=== PATIENT | male | born 1965 | race Caucasian/White ===

== ENCOUNTER 2021-09-19 10:18 | Inpatient (IN) | payer MEDICARE, MEDICAID, SELFPAY ==
[2021-09-19] VITALS (16 sets, daily range): BP systolic 99–146; BP diastolic 61–104; PULSE 88–158; RESP 18–19; TEMP 36.6; O2SAT 92–98; BMI 17.4
--- NOTE | 2021-09-19 10:26 | XR_ITS ---
WS: [id number] Exam: XR chest 1V portable [id number] Date/Time of Exam: 09/19/2021 10:31 AM Reason For Exam: cp Comparison 10/31/2018. The lungs are hyperinflated and clear. Normal cardiomediastinal silhouette. No pleural effusions. Bon y structures are intact. XR/XR chest 1V portable [id number] IMPRESSION: 1. Pulmonary hyperinflation. No acute cardiopulmonary finding.
--- NOTE | 2021-09-19 10:26 | ECG_ITS ---
[facility] Test Date: 2021-09-19 Pat Name: Rodrigue Mayorga Department: Room: Gender: Male Vocational Training Instructor: : 1965 Requested By: Darnell Carlisle Order Number: [id number] Molina MD: Rocky Dennis M.D. Measurements Intervals [place] Rate: 106 P: [place]: QRS: 74 QRSD: 91 T: 75 QT: 323 QTc: 431 Interpretive Statements ATRIAL FIBRILLATION WITH RAPID VENTRICULAR RESPONSE WITH ABERRANT CONDUCTION OR VENTRICULAR PREMATURE COMPLEXES VOLTAGE CRITERIA FOR LVH [MEETS CRITERIA IN ONE OF: R(aVL), S(V1), R(V5), R(V5/V6)+S(V1)] Compared to ECG 11/01/2018 06:14:35 Left ventricular hypertrophy now present Electronically Signed On 09-19-2021 22:28:23 CDT by Rocky Dennis M.D. [id number]
--- NOTE | 2021-09-19 10:57 | ED_ITS ---
HPI - Arrhythmia/Palpitations General: Chief Complaint: Arrhythmia/Palpitations Stated Complaint: PALPITATIONS Time Seen by Provider: 09/19/21 10:26 Source: patient Mode of arrival: EMS History of Present Illness: 48-year-old male presents emergency room with A. fib with RVR. He went to [facility] and was noted to be in A. fib with RVR. He has a history of liver cirrhosis as well as the A. fib. He currently is taking metoprolol 25 mg daily for the A. fib. MD complaint: rapid heart beat, heart racing and atrial fibrillation Onset (ago): hour(s) Duration: constant Context: occurred during rest Arrhythmia history: atrial fibrillation Associated symptoms: Deny anxiety, cough, diaphoresis, muscle cramps, nausea, paresthesias, pre-syncope, sense of impending doom, short of breath, syncope or vomiting Review of Systems Const: Denies: fever(s), chills, fatigue, malaise or diaphoresis ENMT: Denies: throat pain, ear or mastoid pain, nasal discharge or nasal congestion Card: Reports: palpitations and irregular heart rhythm; Denies: chest pain, syncope or pre-syncope Resp: Denies: dyspnea, productive cough or non-productive cough GI: Denies: nausea or vomiting : Denies: flank pain, dysuria, urinary frequency or urinary urgency Musc: Denies: muscle cramps Skin/Breast: Denies: rash or pruritus Psych: Denies: anxiety [facility] ED PFSH: Medical History Ascending aortic aneurysm Atrial fibrillation Cardiomyopathy Congestive heart failure Surgical History S/P thoracentesis Family History Mother Diabetes Grandmother Heart disease Social History Smoking and tobacco status: current every day smoker cigarettes Packs smoked per day: 0.5 Years cigarettes smoked: 50 Alcohol intake: former Lives independently: Yes Housing: Other Details: [facility] [address] [facility] [address] Marital status: Legally Number of children: 0 service: No Current occupational status: disabled Pets and animals: Yes Pets & animals: cat(s) and dog(s) Physical Exam Const: ORIENTATION/CONSCIOUSNESS: Yes awake, Yes oriented to person, Yes oriented to place and Yes oriented to time HENMT: COMMON NORMALS: normocephalic, atraumatic and hearing grossly normal bilaterally HEAD & SCALP: normocephalic and atraumatic Resp: COMMON NORMALS: normal respiratory effort, No retractions, No use of accessory muscles and clear to auscultation bilaterally AUSCULTATION: clear to auscultation bilaterally Cardio: RATE: tachycardic RHYTHM: abnormal rhythm irregularly irregular GI: COMMON NORMALS: Soft to palpation and No hepatosplenomegaly present AUS CULTATION: Yes normoactive bowel sounds PALPATION: Yes Soft to palpation, No Tenderness to palpation present (GI), No Guarding due to palpation present (GI) and Yes No hepatosplenomegaly present Extremity: COMMON NORMALS: normal to inspection, capillary refill normal, no clubbing, cyanosis or edema, no calf tenderness and no pedal edema Neuro: SENSORIUM/ORIENTATION: Yes oriented to person, Yes oriented to place and Yes oriented to time Skin: COMMON NORMALS: no rashes or lesions noted GENERAL SKIN EXAM: no rashes or lesions noted Course Vital Signs: Vital signs: Vital Signs Temperature 97.9 F 09/19/21 10:27 Pulse Rate 122 H 09/19/21 10:27 Respiratory Rate 19 H 09/19/21 10:27 Blood Pressure 146/101 09/19/21 10:27 Pulse Oximetry 98 09/19/21 10:27 MDM - Arrhythmia/Palpitations Medical Decision Making A. fib with RVR with response to esmolol. Patient is on a drip currently. Initially came in to give him IV push metoprolol and a p.o. dose hoping it would converted since he usually does use a beta-kassidy. This did not result in controlled rates of the esmolol was started patient's rate is improved now still titrating up to be admitted discussed the hospitalist orders written Medical Records I reviewed the patient's medical records. Lab Data I reviewed the patient's lab results. : 09/19/21 11:03 09/19/21 11:03 Radiology Impressions Chest X-Ray 09/19/21 10:26 IMPRESSION: 1. Pulmonary hyperinflation. No acute cardiopulmonary finding. Laboratory Results WBC 10.6 10^3/uL (4.0-10.0) H 09/19/21 11:03 RBC 5.26 10^6/uL (4.1-5.3) 09/19/21 11:03 Hgb 15.7 g/dL (11.7-16.6) 09/19/21 11:03 Hct 44.7 % (42.0-52.0) 09/19/21 11:03 MCV 85.0 fl (80-94) 09/19/21 11:03 MCH 29.8 pg (28.0-34.0) 09/19/21 11:03 MCHC 35.1 g/dL (30.0-36.0) 09/19/21 11:03 RDW 13.2 % (12.1-15.1) 09/19/21 11:03 Plt Count 147 10^3/cmm (130-400) 09/19/21 11:03 MPV 11.1 fL (7.4-10.4) H 09/19/21 11:03 Neut % (Auto) 79.8 % 09/19/21 11:03 Lymph % (Auto) 12.9 % 09/19/21 11:03 [place] % (Auto) 6.2 % 09/19/21 11:03 Eos % (Auto) 0.5 % 09/19/21 11:03 Baso % (Auto) 0.2 % 09/19/21 11:03 Neut # (Auto) 8.50 10^3/uL (1.8-7.7) H 09/19/21 11:03 Lymph # (Auto) 1.4 10^3/uL (0.8-4.8) 09/19/21 11:03 [place] # (Auto) 0.7 10^3/uL (0.2-0.9) 09/19/21 11:03 Eos # (Auto) 0.1 10^3/uL (0.0-0.8) 09/19/21 11:03 Baso # (Auto) 0.0 10^3/uL (0.0-0.1) 09/19/21 11:03 Nucleated RBC % (auto) 0 % 09/19/21 11:03 Nucleated RBCs # 0.0 /100WBC 09/19/21 11:03 Sodium 132 mmol/L (136-145) L 09/19/21 11:03 Potassium 3.2 mmol/L (3.5-5.1) L 09/19/21 11:03 Chloride 96 mmol/L (98-107) L 09/19/21 11:03 Carbon Dioxide 25 mmol/L (22-29) 09/19/21 11:03 Anion Gap 14.2 (5-19) 09/19/21 11:03 BUN 4 mg/dL (6-20) L 09/19/21 11:03 Creatinine 0.6 mg/dL (0.7-1.2) L 09/19/21 11:03 GFR Calculation 138.4 mL/min (90-130) H 09/19/21 11:03 Glucose 121 mg/dL (65-115) H 09/19/21 11:03 Calculated Osmolality 272 mOsm/kg (285-295) L 09/19/21 11:03 Calcium 8.6 mg/dL (8.5-10.5) 09/19/21 11:03 Total Bilirubin 1.0 mg/dL (0.15-1.2) 09/19/21 11:03 AST 17 U/L (0-40) 09/19/21 11:03 ALT 11 U/L (0-41) 09/19/21 11:03 Alkaline Phosphatase 96 IU/L (40-130) 09/19/21 11:03 Troponin T Baseline 11 ng/L (0-15) 09/19/21 11:03 NT-Pro-B Natriuret Pep 1504 pg/mL (0-125) H 09/19/21 11:03 Total Protein 6.9 g/dL (6.6-8.7) 09/19/21 11:03 Albumin 4.0 g/dL (3.5-5.2) 09/19/21 11:03 Globulin 2.9 g/dL (1.3-4.6) 09/19/21 11:03 Ethyl Alcohol < 10 mg/dL (0-10) 09/19/21 11:03 Critical Care Time Critical Care Time: Critical Care Time: Yes Total Critical Care Time: 40 Attestation: The high probability of a clinically significant, sudden or life threatening deterioration of the patient's cardiovascular system(s) required my full and direct attention, intervention and personal management. The critical care time is as shown. This time is in addition to time spent performing any reported procedures but includes the following: [x] Data and vital sign review and interpretation [x] Patient assessment, examination and intervention [x] Documentation [x] Medication orders and management Discharge Plan Discharge Patient Disposition: Admitted As Inpatient Clinical Impression: Atrial fibrillation, Cardiomyopathy Condition: Stable Prescriptions: No Action albuterol sulfate 2.5 mg /3 mL (0.083 %) solution for nebulization 2.5 mg inhalation TID 0RF Combivent Respimat 20-100 mcg/actuation mist 1 puff inhalation Q6H 0RF cranberry extract [Cranberry Concentrate] 500 mg capsule 500 mg PO DAILY 0RF Rx Instructions: administer with meals entecavir 0.5 mg tablet 0.5 mg PO DAILY 0RF ipratropium bromide 0.02 % solution 2.5 ml inhalation Q6H PRN (Reason: Shortness Of Breath) 0RF magnesium oxide 400 mg magnesium tablet 400 mg PO DAILY 0RF metoprolol succinate 25 mg tablet extended release 24 hr 50 mg PO DAILY 0RF pantoprazole 40 mg tablet,delayed release (DR/EC) 40 mg PO BID 0RF budesonide-formoterol [Symbicort] 160-4.5 mcg/actuation HFA aerosol inhaler 2 puff inhalation BID 0RF albuterol sulfate [Ventolin HFA] 90 mcg/actuation HFA aerosol inhaler 2 puff inhalation QID 0RF B complex-vitamin C-folic acid 400 mcg tablet extended release 1 tab PO DAILY 0RF ascorbic acid (vitamin C) 1,000 mg tablet 1 g PO DAILY 0RF furosemide 20 mg tablet 20 mg PO DAILY PRN (Reason: Edema) 0RF potassium chloride 10 mEq capsule, extended release 10 meq PO DAILY 0RF Referrals: Toan Sanchez, AUTOMOTIVE COLLISION ESTIMATOR-C [Primary Care Provider] - Coding Level of Care Code ED Blood Donor Recruiter for Chg Fwd Exam Detailed
[2021-09-19 11:24] LABS: Basophils % 0.2 %; Eosinophils # 0.1 10^3/uL (0.0-0.8); Eosinophils % 0.5 %; Hematocrit 44.7 % (42.0-52.0); Hemoglobin 15.7 g/dL (11.7-16.6); Lymphocytes # 1.4 10^3/uL (0.8-4.8); Lymphocytes % 12.9 %; Mean Corpuscular HGB Conc 35.1 g/dL (30.0-36.0); Mean Corpuscular Hemoglobin 29.8 pg (28.0-34.0); Mean Platelet Volume 11.1 fL (7.4-10.4); Monocytes # 0.7 10^3/uL (0.2-0.9); Monocytes % 6.2 %; Neutrophils % 79.8 %; Nucleated Red Blood Cells % 0 %; Platelet Count 147 10^3/cmm (130-400); Red Blood Count 5.26 10^6/uL (4.1-5.3); Red Cell Distribution Width 13.2 % (12.1-15.1); White Blood Count 10.6 10^3/uL (4.0-10.0)
[2021-09-19 11:58] LABS: Alanine Aminotransferase 11 U/L (0-41); Alcohol Level < 10 mg/dL (0-10); Alkaline Phosphatase 96 IU/L (40-130); Anion Gap 14.2 (5-19); Aspartate Amino Transferase 17 U/L (0-40); Blood Urea Nitrogen 4 mg/dL (6-20); Calcium 8.6 mg/dL (8.5-10.5); Carbon Dioxide 25 mmol/L (22-29); Chloride 96 mmol/L (98-107); Globulin 2.9 g/dL (1.3-4.6); Glomerular Filtration Rate 138.4 mL/min (90-130); Glucose 121 mg/dL (65-115); NT Pro B Type Natriuretic Pept 1504 pg/mL (0-125); Osmolality Calculated 272 mOsm/kg (285-295); Potassium 3.2 mmol/L (3.5-5.1); Sodium 132 mmol/L (136-145); Total Protein 6.9 g/dL (6.6-8.7)
[2021-09-19] MEDS: metoprolol succinate ER (24 HR) 25 mg Tablet PO (12:01)
[2021-09-19 12:07] LABS: Troponin(5th) Baseline 11 ng/L (0-15)
[2021-09-19] MEDS: esmolol drip 2,500 MG/250 ML PREMIX 9.53 MG IV (12:20)
--- NOTE | 2021-09-19 12:26 | ECG_ITS ---
[facility] Test Date: 2021-09-19 Pat Name: Rodrigue Mayorga Department: Room: Gender: Male Senior Financial Reporting Analyst: : 1965 Requested By: Darnell Carlisle Order Number: [id number] Molina MD: Rocky Dennis M.D. Measurements Intervals [place] Rate: 125 P: [place]: QRS: 74 QRSD: 93 T: 78 QT: 308 QTc: 445 Interpretive Statements ATRIAL FIBRILLATION WITH RAPID VENTRICULAR RESPONSE VOLTAGE CRITERIA FOR LVH [MEETS CRITERIA IN ONE OF: R(aVL), S(V1), R(V5), R(V5/V6)+S(V1)] MODERATE ST DEPRESSION [0.05+ mV ST DEPRESSION] Compared to ECG 09/19/2021 10:30:43 ST (T wave) deviation now present Ventricular premature complex(es) no longer present Aberrant conduction of supraventricular beat(s) no longer present Electronically Signed On 09-19-2021 22:36:47 CDT by Rocky Dennis M.D. [id number]
--- NOTE | 2021-09-19 13:35 | PM.HP ---
Providers/Chief Complaint Primary Care Provider: Tona Sanchez UNDERTAKER HELPER-C Chief Complaint: PALPITATIONS History of Present Illness Rodrigue Mayorga is a 56 year old male who carries history of nonischemic cardiomyopathy, history of GI bleed, A. fib, presented today with chief complaint of chest pain. Patient is stating that he has been having right-sided pain for last 4 to 5 years and last few days he has been experiencing palpitations at rest and on exertion. His metoprolol medication has not helped relieve his symptoms. He decided to go to [facility] where Dr. Moseley asked him to go to the ER for further evaluation. In the ER he was diagnosed with A. fib RVR he was started on esmolol drip. Because of low blood pressure I have asked nurse to switch to amiodarone after IV bolus. He is denying chest pain, orthopnea, PND, he experienced vomiting on Saturday which she is attributing to his gallbladder, patient is stating that he was asked not to get his COVID removed because of liver cirrhosis and poor ejection fraction. Review of Systems Const: Denies: fever(s) Eyes: Denies: change in vision ENMT: Denies: throat pain Card: Reports: chest pain Resp: Reports: dyspnea GI: Reports: nausea : Denies: flank pain Musc: Denies: neck pain Skin/Breast: Denies: rash Neuro: Denies: headache(s) Psych: Denies: anxiety Endo: Denies: polyuria Rafa/Lymph: Denies: easy bruising All/Imm: Denies: urticaria Medications/Allergies Home Medications Medication Instructions Recorded Confirmed Last Taken Type B complex-vitamin C-folic acid ER 1 tab PO DAILY tab 09/26/20 09/19/21 Unknown History 400 mcg tablet,extended release albuterol sulfate 2.5 mg INHALATION TID ml 09/26/20 09/19/21 09/19/21 History albuterol sulfate 90 mcg/actuation 2 puff INHALATION QID 09/26/20 09/19/21 09/19/21 History aerosol inhaler (Ventolin HFA) ascorbic acid (vitamin C) 1,000 mg 1 g PO DAILY tab 09/26/20 09/19/21 Unknown History tablet budesonide-formoterol HFA 160 2 puff INHALATION BID 09/26/20 09/19/21 09/19/21 History mcg-4.5 mcg/actuation aerosol inhaler (Symbicort) cranberry extract 500 mg capsule 500 mg PO DAILY cap 09/26/20 09/19/21 09/19/21 History (Cranberry Concentrate) entecavir 0.5 mg tablet 0.5 mg PO DAILY 09/26/20 09/19/21 09/19/21 History ipratropium 20 mcg-albuterol 100 1 puff INHALATION Q6H 09/26/20 09/19/21 09/18/21 History mcg/actuation mist for inhalation (Combivent Respimat) ipratropium bromide 0.02 % 2.5 ml INHALATION Q6H PRN 09/26/20 09/19/21 Unknown History solution for inhalation magnesium oxide 400 mg PO DAILY 09/26/20 09/19/21 09/19/21 History metoprolol succinate 25 mg 50 mg PO DAILY tab 09/26/20 09/19/21 09/19/21 History tablet,extended release 24 hr pantoprazole 40 mg tablet,delayed 40 mg PO BID tab 09/26/20 09/19/21 09/19/21 History release furosemide 20 mg tablet 20 mg PO DAILY PRN 11/08/20 09/19/21 Unknown History potassium chloride 10 mEq 10 meq PO DAILY 11/08/20 09/19/21 09/19/21 History capsule,extended release Allergies Allergy/AdvReac Type Severity Reaction Status Date / Time clindamycin Allergy Intermediate Facial Verified 09/19/21 11:50 swelling codeine AdvReac Unknown Nightmares Verified 09/19/21 11:50 morphine AdvReac Unknown Nightmares Verified 09/19/21 11:50 PFSH Acute PFSH: Medical History (Updated 09/19/21 @ 14:33 by Thomas West MD) Ascending aortic aneurysm Asthma Atrial fibrillation Cardiomyopathy Chronic type B viral hepatitis Cirrhosis of liver Congestive heart failure COPD (chronic obstructive pulmonary disease) GERD (gastroesophageal reflux disease) History of esophageal varices History of gastric ulcer History of pleural effusion Hyperlipidemia Surgical History (Updated 09/19/21 @ 14:33 by Thomas West MD) S/P coronary angiogram S/P skin biopsy S/P thoracentesis Family History Mother Diabetes Grandmother Heart disease Social History Smoking and tobacco status: current every day smoker cigarettes Packs smoked per day: 0.5 Years cigarettes smoked: 50 Alcohol intake: former Lives independently: Yes Housing: Other Details: [facility] Marital status: Legally Number of children: 0 service: No Current occupational status: disabled Pets and animals: Yes Pets & animals: cat(s) and dog(s) Vitals/I&O/Wt Last Vital Signs Temp 97.9 F 09/19/21 10:27 Pulse 122 H 09/19/21 10:27 Resp 19 H 09/19/21 10:27 BP 146/101 09/19/21 10:27 Pulse Ox 98 09/19/21 10:27 09/18/21 09/19/21 09/19/21 22:59 06:59 14:59 Intake Total 7.783 / 7.783 Balance 7.783 / 7.783 Weight last 48 hrs Weight 63.503 kg Physical Exam Narrative: Pleasant cooperative male No active signs of decompensated liver cirrhosis Lean appearing After chest pain Riddle sign positive Abdomen soft no signs of rigidity guarding or peritonitis Awake and alert Saturating well on room air A. fib RVR heart rate in 130s Low blood pressure noted Currently on esmolol drip No active respiratory distress, no audible stridor or wheezing EOMI, PERRLA No signs of edema or signs of heart failure Data : 09/19/21 11:03 09/19/21 11:03 A&P Assessment and plan (1) Atrial fibrillation: Status: Acute (2) Ascending aortic aneurysm: Status: Acute (3) Cardiomyopathy: Status: Acute (4) Hypokalemia: Status: Acute Plan A. fib RVR Not on anticoagulating agent because of history of GI bleed Increase the dose of metoprolol, change esmolol to amiodarone drip because of low blood pressure In the past patient is stating that his heart rate dropped to 60s with digoxin and that is why digoxin was stopped Potassium is 3.2, check magnesium level, No active chest pain Patient does endorse to marijuana Full code Cardiac diet DVT prophylaxis Lovenox for now in case of any GI bleed will discontinue anticoagulating agent Liver cirrhosis Hepatitis Alcohol history Continue antiviral treatment CIWA protocol patient did not endorse to current use of alcohol Attestations Medical Necessity Statement*: Anticipating more than 2 midnights for A. fib RVR currently needing amiodarone drip Time Spent in Patient Care: 35 Coding Level of Care Code Acute Skilled Trades Teacher for Chg Fwd Diagnoses Atrial fibrillation I48.91 Ascending aortic aneurysm I71.2 Cardiomyopathy I42.9 Hypokalemia E87.6
[2021-09-19 14:40] LABS: Magnesium 1.6 mg/dL (1.7-2.3)
[2021-09-19] MEDS: potassium chloride ER 20 mEq Tablet 40 MEQ PO (14:45)
[2021-09-19] MEDS: amiodarone 50 mg/mL SDV 3 mL 150 MG IVP (14:45)
[2021-09-19 15:07] LABS: Thyroid Stimulating Hormone 0.62 uIU/mL (0.27-4.20)
[2021-09-19 15:18] LABS: Troponin 5 2HR Delta -1.1 ABS# (0-10)
--- NOTE | 2021-09-19 16:26 | ECG_ITS ---
[facility] Test Date: 2021-09-19 Pat Name: Rodrigue Mayorga Department: Room: 277 Gender: Male Customer Solutions Representative: : 1965 Requested By: Darnell Carlisle Order Number: [id number] Jesse MD: Rocky Dennis M.D. Measurements Intervals [place] Rate: 83 P: [place]: QRS: 66 QRSD: 90 T: 66 QT: 371 QTc: 437 Interpretive Statements ATRIAL FIBRILLATION ABNORMAL RHYTHM ECG Compared to ECG 09/19/2021 12:25:31 Left ventricular hypertrophy no longer present ST (T wave) deviation no longer present Electronically Signed On 09-19-2021 22:37:50 CDT by Rocky Dennis M.D. [id number]
[2021-09-19] MEDS: nicotine 21 mg Patch 1 PATCH TRANSDERMA (16:45)
[2021-09-19 18:03] LABS: Troponin 5 6HR 10.74 ng/L (0-15)
[2021-09-19 18:34] LABS: Troponin 5 6HR Delta 0.56 ng/L (0-12)
[2021-09-20] VITALS (9 sets, daily range): BP systolic 105–143; BP diastolic 76–100; PULSE 90–114; RESP 14–24; TEMP 36.3–37; O2SAT 94–97
--- NOTE | 2021-09-20 00:29 | PC.NURSE ---
patient requesting home symbicort, contacted Dr Hernandez for order to continue home med, placed non-formulary order to pharmacy, later patient pushed call light angrily demanding his symbicort, yelling go get my bag that they took from me right now or I'm going to get upset , notified charge nurse, pulled bag from pyxis and returned to patient, patient still pressing call button multiple times while I was in the room stating I don't think its working , I explained that his light was on and that was why I had entered the room, patient opened bag angrily throwing around contents to get symbicort
[2021-09-20 03:21] LABS: Basophils % 0.4 %; Eosinophils # 0.2 10^3/uL (0.0-0.8); Eosinophils % 1.9 %; Hematocrit 46.8 % (42.0-52.0); Lymphocytes # 1.9 10^3/uL (0.8-4.8); Lymphocytes % 18.6 %; Mean Corpuscular HGB Conc 34.2 g/dL (30.0-36.0); Mean Corpuscular Volume 87.6 fl (80-94); Mean Platelet Volume 11.2 fL (7.4-10.4); Monocytes # 0.7 10^3/uL (0.2-0.9); Monocytes % 7.3 %; Neutrophils # 7.21 10^3/uL (1.8-7.7); Neutrophils % 71.6 %; Nucleated Red Blood Cells % 0 %; Platelet Count 124 10^3/cmm (130-400); Red Blood Count 5.34 10^6/uL (4.1-5.3); Red Cell Distribution Width 13.3 % (12.1-15.1); White Blood Count 10.1 10^3/uL (4.0-10.0)
[2021-09-20 03:36] LABS: Anion Gap 10.5 (5-19); Blood Urea Nitrogen 7 mg/dL (6-20); Calcium 9.2 mg/dL (8.5-10.5); Carbon Dioxide 29 mmol/L (22-29); Chloride 101 mmol/L (98-107); Glomerular Filtration Rate 138.4 mL/min (90-130); Glucose 113 mg/dL (65-115); Magnesium 1.8 mg/dL (1.7-2.3); Osmolality Calculated 283 mOsm/kg (285-295); Phosphorus 2.7 mg/dL (2.5-4.5); Potassium 3.5 mmol/L (3.5-5.1); Sodium 137 mmol/L (136-145)
--- NOTE | 2021-09-20 07:19 | PC.NURSE ---
notified by DIRECTOR ORACLE DATABASE that patient was screaming that one of his medication was missing, went to patient's room with oncoming nurse and told patient that his medication was in the med pyxis for the nurse to bring, patient screaming no I need it now you need to get it now , retrieved Entecavir from med room and gave to patient
[2021-09-20] MEDS: folic acid 1 mg Tablet PO (08:27)
[2021-09-20] MEDS: nicotine 21 mg Patch 1 PATCH TRANSDERMA (08:27)
[2021-09-20] MEDS: magnesium oxide 400 mg tablet PO (08:27)
[2021-09-20] MEDS: potassium chloride ER 10 mEq Tablet PO (08:28)
[2021-09-20] MEDS: thiamine 100 mg Tablet PO (08:28)
[2021-09-20] MEDS: multivitamin therapeutic Tablet 1 TAB PO (08:28)
[2021-09-20] MEDS: metoprolol succinate ER (24 HR) 25 mg Tablet 50 MG PO (08:28)
--- NOTE | 2021-09-20 08:32 | PC.NURSE ---
I presented to the patient's room for rounding and patient states that we took his medications away from him when he was admitted and he wasn't able to take his Hepatitis medication (Entecavir) in the same timeframe he usually does at home. His medication is now kept at his bedside and he will take it in his timeframe that he is used to and he will call the nurse when he is taking it for documentation. Also while at bedside, it was noted that his IV in his left forearm was possibly infiltrated and there was Amiodarone running. I assessed the site and d/c'd the Amiodarone. I informed Moiz Oropeza RN of the infiltration.
[2021-09-20] MEDS: enoxaparin 40 mg/0.4 mL Syringe SUBCUT (08:48)
--- NOTE | 2021-09-20 12:12 | PM.PN ---
Subjective Subjective: Patient wanted to leave AMA however agreed to stay today, he was s craving nicotine Currently heart rate is not well controlled I will increase the dose of metoprolol along amiodarone He still has few more hours before he finishes amiodarone drip Nurse shipping track supervisor Xiomara also spoke to him this morning, had detailed discussion regarding why staying in the hospital is beneficial for him Vitals/I&O/Wt Last Vital Signs Temp 98.0 F 09/20/21 07:47 Pulse 112 H 09/20/21 11:59 Resp 24 H 09/20/21 11:59 BP 105/88 09/20/21 11:59 Pulse Ox 97 09/20/21 11:59 09/19/21 09/20/21 09/20/21 22:59 06:59 14:59 Intake Total 1263.616 / 1293.180 240 / 240 Output Total 900 / 900 400 / 400 Balance 363.616 / 393.180 -160 / -160 Weight last 48 hrs Weight 63.503 kg Physical Exam Narrative: No active signs of decompensated liver cirrhosis Abdomen is soft Saturating well on room air Awake and alert Nonfocal neuro exam A. fib RVR Breathing well on room air Data : 09/20/21 03:04 09/20/21 03:04 A&P Assessment and plan (1) Hypokalemia: Status: Acute (2) Cardiomyopathy: Status: Acute (3) Ascending aortic aneurysm: Status: Acute (4) Atrial fibrillation: Status: Acute Plan A. fib RVR Heart rate not controlled Increase the dose of metoprolol Will use amiodarone 400 twice daily Patient was asked on digoxin he does not have typical heart failure presentation Any stating that digoxin last time his heart rate dropped to 60s Because of history of GI bleed Not a candidate for anticoagulation No active signs of decompensated liver cirrhosis Patient doing well on room air My plan is to discharge him home tomorrow if we are able to control his heart rate He does have symptomatic palpitations at home He is full code Low-sodium diet Attestations Medical Necessity Statement*: He will need 1 more day for up titration of his medications 30 minutes Coding Level of Care Code Acute Laboratory Tech for Chg Fwd Diagnoses Hypokalemia E87.6 Cardiomyopathy I42.9 Ascending aortic aneurysm I71.2 Atrial fibrillation I48.91
[2021-09-20] MEDS: TRAMadol 50 mg Tablet PO ×2 (12:38→20:00)
[2021-09-20] MEDS: metoprolol tartrate 50 mg Tablet 100 MG PO ×2 (15:34→20:00)
[2021-09-20] MEDS: ALPRAZolam 0.5 mg Tablet PO (15:35)
[2021-09-20 15:46] LABS: Add Urine Microscopic? NO; Charge for UA Resulting for Rev
[2021-09-20 15:51] LABS: Bilirubin Urine Neg (Negative); Blood Urine Neg (Negative); Glucose Urine UA Norm (Normal); Ketones Urine Negative (Negative); Leukocyte Esterase Urine Negative (Negative); Nitrate Urine Negative (Negative); Protein Urine Neg (Negative); Specific Gravity, Urine 1.005 (1.005-1.030); Urine Appearance Clear (CLEAR); Urine Color Yellow (Yellow); Urobilinogen Urine Norm (Negative); pH Urine 7 (5-7)
[2021-09-20] MEDS: amiodarone 200 mg Tablet 400 MG PO (18:22)
[2021-09-20] MEDS: LORazepam 2 mg Tablet PO (20:00)
[2021-09-21] VITALS (9 sets, daily range): BP systolic 101–120; BP diastolic 72–78; PULSE 74–93; RESP 11–19; TEMP 36.1–36.6; O2SAT 94–97
[2021-09-21 04:39] LABS: Anion Gap 12.9 (5-19); Blood Urea Nitrogen 10 mg/dL (6-20); Calcium 8.7 mg/dL (8.5-10.5); Carbon Dioxide 25 mmol/L (22-29); Chloride 103 mmol/L (98-107); Glomerular Filtration Rate 170.8 mL/min (90-130); Glucose 91 mg/dL (65-115); Osmolality Calculated 283 mOsm/kg (285-295); Potassium 3.9 mmol/L (3.5-5.1); Sodium 137 mmol/L (136-145)
[2021-09-21] MEDS: magnesium oxide 400 mg tablet PO (08:40)
[2021-09-21] MEDS: amiodarone 200 mg Tablet 400 MG PO (08:40)
[2021-09-21] MEDS: folic acid 1 mg Tablet PO (08:40)
[2021-09-21] MEDS: potassium chloride ER 10 mEq Tablet PO (08:40)
[2021-09-21] MEDS: multivitamin therapeutic Tablet 1 TAB PO (08:40)
[2021-09-21] MEDS: thiamine 100 mg Tablet PO (08:41)
[2021-09-21] MEDS: metoprolol tartrate 50 mg Tablet 100 MG PO (08:43)
[2021-09-21] MEDS: nicotine 21 mg Patch 1 PATCH TRANSDERMA (08:47)
--- NOTE | 2021-09-21 10:53 | P.DS_ITS ---
Discharge Providers Date of Admission: 09/19/21 15:04 Date of Discharge: September 21, 2021 Attending Provider at Admission: Thomas West MD Attending Provider at Discharge: Thomas West MD Primary Care Provider: Tona Sanchez-Jony Diagnoses at Discharge Discharge Diagnosis (1) Hypokalemia: Status: Acute (2) Cardiomyopathy: Status: Acute (3) Ascending aortic aneurysm: Status: Acute (4) Atrial fibrillation: Status: Acute Reason for Visit Reason for Visit: PALPITATIONS Hospital Course Hospital Course Mr. Mayorga 56-year-old male who carries history of nonischemic cardiomyopathy, atrial fibrillation, not a candidate of anticoagulation secondary to GI bleed in the past, was referred from my known clinic to the ER for palpitations management of A. fib RVR. Patient was initially put on esmolol drip. I had to discontinue the drip and start him on amiodarone after the IV bolus because of low blood pressure. He remained hemodynamically stable on amiodarone drip. I discontinued his metoprolol succinate and start him on metoprolol tartrate 100 mg twice a day. TSH normal. Electrolytes were replenished. Patient wanted to leave next day however agreed to stay 1 more day when I told him why it is important to control his heart rate to avoid palpitations and symptoms at home. On 09/21 heart rate is staying between 80-92, intermittent sinus rhythm to A. fib pattern on telemetry. I will discharge him on amiodarone 200 mg daily along with metoprolol 100 mg twice a day and high-dose aspirin. He is not a candidate of anticoagulating agent. For ascending aortic aneurysm he follows up with Dr. Brody. Physical Exam Narrative: Nonfocal neuro exam Cachectic, malnourished S1, S2 variable no active shortness of breath, apnea or PND Nonfocal neuro exam Cooperative and pleasant Discharge Data Studies Completed and Pending Completed Studies During Hospitalization Category Date Time Status XR chest 1V portable [id number] Stat Exams 09/19/21 10:26 Completed Radiology Impressions Chest X-Ray 09/19/21 10:26 IMPRESSION: 1. Pulmonary hyperinflation. No acute cardiopulmonary finding. Laboratory Results WBC 10.1 10^3/uL (4.0-10.0) H 09/20/21 03:04 RBC 5.34 10^6/uL (4.1-5.3) H 09/20/21 03:04 Hgb 16.0 g/dL (11.7-16.6) 09/20/21 03:04 Hct 46.8 % (42.0-52.0) 09/20/21 03:04 MCV 87.6 fl (80-94) 09/20/21 03:04 MCH 30.0 pg (28.0-34.0) 09/20/21 03:04 MCHC 34.2 g/dL (30.0-36.0) 09/20/21 03:04 RDW 13.3 % (12.1-15.1) 09/20/21 03:04 Plt Count 124 10^3/cmm (130-400) L 09/20/21 03:04 MPV 11.2 fL (7.4-10.4) H 09/20/21 03:04 Neut % (Auto) 71.6 % 09/20/21 03:04 Lymph % (Auto) 18.6 % 09/20/21 03:04 Thomas % (Auto) 7.3 % 09/20/21 03:04 Eos % (Auto) 1.9 % 09/20/21 03:04 Baso % (Auto) 0.4 % 09/20/21 03:04 Neut # (Auto) 7.21 10^3/uL (1.8-7.7) 09/20/21 03:04 Lymph # (Auto) 1.9 10^3/uL (0.8-4.8) 09/20/21 03:04 Thomas # (Auto) 0.7 10^3/uL (0.2-0.9) 09/20/21 03:04 Eos # (Auto) 0.2 10^3/uL (0.0-0.8) 09/20/21 03:04 Baso # (Auto) 0.0 10^3/uL (0.0-0.1) 09/20/21 03:04 Nucleated RBC % (auto) 0 % 09/20/21 03:04 Nucleated RBCs # 0.0 /100WBC 09/20/21 03:04 Sodium 137 mmol/L (136-145) 09/21/21 03:51 Potassium 3.9 mmol/L (3.5-5.1) 09/21/21 03:51 Chloride 103 mmol/L (98-107) 09/21/21 03:51 Carbon Dioxide 25 mmol/L (22-29) 09/21/21 03:51 Anion Gap 12.9 (5-19) 09/21/21 03:51 BUN 10 mg/dL (6-20) 09/21/21 03:51 Creatinine 0.5 mg/dL (0.7-1.2) L 09/21/21 03:51 GFR Calculation 170.8 mL/min (90-130) H 09/21/21 03:51 Glucose 91 mg/dL (65-115) 09/21/21 03:51 Calculated Osmolality 283 mOsm/kg (285-295) L 09/21/21 03:51 Calcium 8.7 mg/dL (8.5-10.5) 09/21/21 03:51 Phosphorus 2.7 mg/dL (2.5-4.5) 09/20/21 03:04 Magnesium 1.8 mg/dL (1.7-2.3) 09/20/21 03:04 Total Bilirubin 1.0 mg/dL (0.15-1.2) 09/19/21 11:03 AST 17 U/L (0-40) 09/19/21 11:03 ALT 11 U/L (0-41) 09/19/21 11:03 Alkaline Phosphatase 96 IU/L (40-130) 09/19/21 11:03 Troponin T Baseline 11 ng/L (0-15) 09/19/21 11:03 Troponin T 120 Minute 10.20 ng/L (0-15) 09/19/21 13:30 Delta Troponin T -1.1 ABS# (0-10) L 09/19/21 13:30 Troponin T Hi Sens 6Hr 10.74 ng/L (0-15) 09/19/21 17:14 Troponin T Hi Sens 6Hr Delta 0.56 ng/L (0-12) 09/19/21 17:14 NT-Pro-B Natriuret Pep 1504 pg/mL (0-125) H 09/19/21 11:03 Total Protein 6.9 g/dL (6.6-8.7) 09/19/21 11:03 Albumin 4.0 g/dL (3.5-5.2) 09/19/21 11:03 Globulin 2.9 g/dL (1.3-4.6) 09/19/21 11:03 TSH 0.62 uIU/mL (0.27-4.20) 09/19/21 13:30 Urine Color Yellow (Yellow) 09/19/21 15:40 Urine Appearance Clear (CLEAR) 09/19/21 15:40 Urine pH 7 (5-7) 09/19/21 15:40 Ur Specific [place] 1.005 (1.005-1.030) 09/19/21 15:40 Urine Protein Neg (Negative) 09/19/21 15:40 Urine Glucose (UA) Norm (Normal) 09/19/21 15:40 Urine Ketones Negative (Negative) 09/19/21 15:40 Urine Blood Neg (Negative) 09/19/21 15:40 Urine Nitrate Negative (Negative) 09/19/21 15:40 Urine Bilirubin Neg (Negative) 09/19/21 15:40 Urine Urobilinogen Norm mg/dL (Negative) 09/19/21 15:40 Ur Leukocyte Esterase Negative (Negative) 09/19/21 15:40 Ethyl Alcohol < 10 mg/dL (0-10) 09/19/21 11:03 Vitals Last Vital Signs Temp 97.6 F 09/21/21 07:49 Pulse 92 09/21/21 10:35 Resp 19 H 09/21/21 07:49 BP 120/78 09/21/21 07:49 Pulse Ox 95 09/21/21 07:49 Discharge Plan Discharge Patient Disposition: Home Condition: Stable Prescriptions: New metoprolol tartrate 50 mg Tablet 100 mg PO BID@0900,2100 Qty: 60 4RF amiodarone 200 mg tablet 200 mg PO DAILY Qty: 90 4RF aspirin 325 mg capsule 325 mg PO DAILY Qty: 30 3RF Continued albuterol sulfate 2.5 mg /3 mL (0.083 %) solution for nebulization 2.5 mg inhalation TID 0RF Combivent Respimat 20-100 mcg/actuation mist 1 puff inhalation Q6H 0RF cranberry extract [Cranberry Concentrate] 500 mg capsule 500 mg PO DAILY 0RF Rx Instructions: administer with meals entecavir 0.5 mg tablet 0.5 mg PO DAILY 0RF ipratropium bromide 0.02 % solution 2.5 ml inhalation Q6H PRN (Reason: Shortness Of Breath) 0RF magnesium oxide 400 mg magnesium tablet 400 mg PO DAILY 0RF pantoprazole 40 mg tablet,delayed release (DR/EC) 40 mg PO BID 0RF budesonide-formoterol [Symbicort] 160-4.5 mcg/actuation HFA aerosol inhaler 2 puff inhalation BID 0RF albuterol sulfate [Ventolin HFA] 90 mcg/actuation HFA aerosol inhaler 2 puff inhalation QID 0RF B complex-vitamin C-folic acid 400 mcg tablet extended release 1 tab PO DAILY 0RF ascorbic acid (vitamin C) 1,000 mg tablet 1 g PO DAILY 0RF furosemide 20 mg tablet 20 mg PO DAILY PRN (Reason: Edema) 0RF potassium chloride 10 mEq capsule, extended release 10 meq PO DAILY 0RF Discontinued metoprolol succinate 25 mg tablet extended release 24 hr 50 mg PO DAILY 0RF Discharge Orders: Discharge Order (Routine); Ordered 09/21/21 Ordered By: Thomas West Referrals: Ten Berry MD [Hospitalist] - 10/09/21 10:00 am ([facility]. ) Tona Sanchez FNP-C [Primary Care Provider] - 09/27/21 9:30 am Discharge Diet: Cardiac Discharge Activity: Increase activity as tolerated Patient Instructions: A-fib (Atrial Fibrillation) (DC), Hypertrophic Cardiomyopathy (DC), Hypokalemia (DC), Opioid Safety Discharge Attestations Time Spent in Discharge Care*: less than 30 min Quality Metrics Clinical Quality Measures [ No reported AMI, CVA or VTE this stay] Coding Level of Care Code Acute Chg FW DC note Diagnoses Hypokalemia E87.6 Cardiomyopathy I42.9 Ascending aortic aneurysm I71.2 Atrial fibrillation I48.91
== END 2021-09-21 14:00 | disposition home or self-care (01) | DRG 309 ==
LOC: ER 13:28 → MEDSURG 17:21
PROVIDERS: Physician Assistant; Admitting Provider Internal Medicine; Emergency Provider Family Medicine; PCP Nurse Practitioner Family; Visit Provider Internal Medicine
DX: I48.91 Unspecified atrial fibrillation (principal); B18.1 Chronic viral hepatitis B without delta-agent; K74.60 Unspecified cirrhosis of liver; I71.4 Abdominal aortic aneurysm, without rupture; F17.210 Nicotine dependence, cigarettes, uncomplicated; I42.8 Other cardiomyopathies; J44.9 Chronic obstructive pulmonary disease, unspecified; K21.9 Gastro-esophageal reflux disease without esophagitis; E78.5 Hyperlipidemia, unspecified; Z79.51 Long term (current) use of inhaled steroids
CPT/HCPCS: 36415; 71045; 80048; 80053; 80307; 81003; 83735; 83880; 84100; 84443; 84484; 85025; 93005; 96365; 96372; 96375; 99285; J0282; J1650; J3411; J3490; J7060

== ENCOUNTER 2022-03-01 14:39 | Outpatient (CLI) | payer MEDICARE, MEDICAID, SELFPAY ==
--- NOTE | 2022-03-01 15:30 | CT_ITS ---
WS: [id number] CTA THORACIC TECHNIQUE: Contrast enhanced CTA of the thoracic aorta with coronal and sagittal reformatted images a nd maximum intensity projection (MIP) images. CLINICAL INFORMATION: thoracic aortic aneurysm COMPARISON: CT 2019 DLP: 1195.[address] scans at [facility] use at least one of these dose optimization techniques: automated e xposure control; mA and/or kV adjustment per patient size (includes targeted exams where dose is matc hed to clinical indication); or iterative reconstruction. FINDINGS: Aneurysmal ascending thoracic aorta measuring 4.1 cm unchanged. Normal caliber descending thoracic ao rta. Normal caliber upper abdominal aorta. Celiac and SMA are patent. Proximal renal arteries are pat ent. Adrenal glands are normal. Normal GE junction. Cirrhotic liver similar to the prior examinations with evidence of portal venous hypertension. Associated hepatic parenchymal fibrosis. Splenomegaly. Proximal main pulmonary arteries are normal. Fibrosis in the lung apices. Moderate chronic emphysematous changes. No acute pulmonary infiltrates. No focal pneumonia or pleural fluid. No mediastinal or hilar lymphadenopathy. No axillary lymphadenop athy. Moderate thoracic kyphosis. Noncalcified nodule LEFT lower lobe laterally measuring 6 mm. This is stable since 2019 CT/CT angio chest [id number] IMPRESSION: 1. Aneurysmal ascending thoracic aorta measuring 4.1 cm unchanged since 2019. 2. Moderate chronic emphysematous changes. No acute pulmonary infiltrates. 3. Stable noncalcified nodule LEFT lower lobe measuring 6 mm unchanged since t 19. 4. Cirrhotic liver with portal venous hypertension with hepatomegaly similar t o the prior examinations.
[2022-03-01] MEDS: iohexol 350 mg/mL 500 mL Btl (per mL) IV (16:11)
== END 2022-03-01 14:40 | disposition home or self-care (01) ==
LOC: RAD 14:43
PROVIDERS: PCP Family Medicine; Visit Provider Thoracic Surgery (Cardiothoracic Vascular Surgery)
DX: I71.20 Thoracic aortic aneurysm, without rupture, unspecified (principal); R91.1 Solitary pulmonary nodule; K76.6 Portal hypertension; R16.0 Hepatomegaly, not elsewhere classified
CPT/HCPCS: 71275; Q9967

== ENCOUNTER 2023-03-27 12:50 | Outpatient (CLI) | payer MEDICARE, MEDICAID, SELFPAY ==
[2023-03-27] MEDS: iohexol 350 mg/mL 500 mL Btl (per mL) IV (13:56)
--- NOTE | 2023-03-27 15:30 | CTR_ITS ---
PROCEDURE INFORMATION: Exam: CTA Chest With Contrast Exam date and time: 03/27/2023 1:51 PM Age: 57 years old Clinical indication: Other: Thoracic aneurysm; Patient HX: F/u for thoracic aortic aneurysm. Denies any current complaints. ; Additional info: Ascending aortic aneurysm TECHNIQUE: Imaging protocol: Computed tomographic angiography of the chest with contrast. Exam focused on the arteries. 3D rendering (Not supervised by radiologist): MIP and/or 3D reconstructed images were created by the technologist. Radiation optimization: All CT scans at this facility use at least one of these dose optimization techniques: automated exposure control; mA and/or kV adjustment per patient size (includes targeted exams where dose is matched to clinical indication); or iterative reconstruction. Contrast material: OMNI 350; Contrast volume: 100 ml; Contrast route: INTRAVENOUS (IV); REPORTING DATA: Count of CT and Cardiac NM exams in prior 12 months: This patient has received 0 known CTs and 0 known cardiac nuclear medicine studies in the 12 months prior to the current study. COMPARISON: CT angio chest [id number] 03/01/2022 3:48 PM RADIATION DOSE METRICS: Total DLP (mGy-cm): 421.71 FINDINGS: Pulmonary arteries: No central or segmental pulmonary emboli. Aorta: 4.2 cm diameter ascending aorta (6-90), grossly unchanged. Lungs: New focal consolidation of the lingula with associated bronchiectasis. Multiple bilateral pulmonary nodules measuring up to 6 mm (example right lower lobe series 6, image 105 and left anterior subpleural upper lobe nodule on image 52. Emphysematous changes. Pleural spaces: No pneumothorax. No pleural effusion. Heart: Coronary calcifications. No pericardial effusion. Lymph nodes: No enlarged lymph nodes. Bones/joints: No acute findings. Soft tissues: Cirrhotic liver morphology. CT/CT angio chest [id number] IMPRESSION: Unchanged 4.2 cm diameter ascending aorta. New focal consolidation at the lingula, likely infectious/inflammatory. Emphysema with multiple bilateral pulmonary nodules measuring up to 6 mm. For patients at high risk (history of smoking or of other known risk factors), recommend CT Chest at 3-6 months, then CT Chest at 18-24 months. (Reference: Andriy)
== END 2023-03-27 12:51 | disposition home or self-care (01) ==
LOC: RAD 12:50
PROVIDERS: PCP Family Medicine; Visit Provider Thoracic Surgery (Cardiothoracic Vascular Surgery)
DX: I71.21 Aneurysm of the ascending aorta, without rupture (principal); J43.9 Emphysema, unspecified; R91.8 Other nonspecific abnormal finding of lung field
CPT/HCPCS: 71275; Q9967

== ENCOUNTER → 2023-06-06 09:46 | Outpatient (BNVA) | payer MEDICARE, MEDICAID, SELFPAY | PROVIDERS: PCP Family Medicine; Visit Provider Nurse Practitioner Family | DX: Z79.899 Other long term (current) drug therapy (principal); K74.60 Unspecified cirrhosis of liver; E78.5 Hyperlipidemia, unspecified; Z13.6 Encounter for screening for cardiovascular disorders; Z12.5 Encounter for screening for malignant neoplasm of prostate; Z12.11 Encounter for screening for malignant neoplasm of colon | CPT/HCPCS: 80053; 80061; 81003; 82306; 83036; 83735; 84100; 84443; 85025; G0103 ==

== ENCOUNTER → 2024-05-15 10:47 | Outpatient (BNVA) | payer OTHER, MEDICAID, SELFPAY | PROVIDERS: PCP Nurse Practitioner Family; Visit Provider Nurse Practitioner Family | DX: S72.012A Unspecified intracapsular fracture of left femur, initial encounter for closed fracture (principal); X58.XXXA Exposure to other specified factors, initial encounter; R93.89 Abnormal findings on diagnostic imaging of other specified body structures | CPT/HCPCS: 73502 ==

== ENCOUNTER 2024-06-11 11:30 | Outpatient (CLI) | payer MEDICAID, OTHER, SELFPAY ==
--- NOTE | 2024-06-11 12:30 | CTR_ITS ---
PROCEDURE INFORMATION: Exam: CT Chest With Contrast; Diagnostic Exam date and time: 06/11/2024 12:36 PM Age: 59 years old Clinical indication: Abnormal findings; Abnormal radiologic exam of lung or chest; Additional info: R91.8 - other nonspecific abnormal finding of lung field, lung mass TECHNIQUE: Imaging protocol: Diagnostic computed tomography of the chest with contrast. Radiation optimization: All CT scans at this facility use at least one of these dose optimization techniques: automated exposure control; mA and/or kV adjustment per patient size (includes targeted exams where dose is matched to clinical indication); or iterative reconstruction. Contrast material: OMNI 350; Contrast volume: 100 ml; Contrast route: INTRAVENOUS (IV); COMPARISON: CT angio chest [id number] 03/27/2023 1:51 PM RADIATION DOSE METRICS: Total DLP (mGy-cm): 244.3 FINDINGS: Lungs: Similar moderate centrilobular and paraseptal emphysematous changes. Interval improvement in a previously seen area of consolidation anteriorly in the left lower lobe with areas of mild bronchiectasis with mild residual, including ill-defined tree-in-bud nodularity. Adjacent calcified granuloma. Scattered areas of scarring, including in the lung apices and throughout the lungs in a subpleural distribution. A few scattered sub 6 mm nodules are stable. Pleural spaces: Unremarkable. No pneumothorax. No pleural effusion. Heart: Unremarkable. No cardiomegaly. No pericardial effusion. Lymph nodes: Calcified mediastinal/hilar lymph nodes from prior granulomatous disease. Vasculature: Similar dilated ascending thoracic aorta measuring up to 4.2 cm. Scattered atherosclerotic aortic calcifications. Bones/joints: Exaggerated thoracic kyphosis with multilevel degenerative changes. Diffuse osseous demineralization. No acute or aggressive osseous lesion. Soft tissues: Unremarkable. CT/CT chest w con* [id number] IMPRESSION: 1. Interval improvement in previously seen left lower lobe consolidation with bronchiectasis with mild residual, likely sequela of prior infection/inflammation. 2. Similar emphysematous changes. 3. Stable dilated ascending thoracic aorta measuring 4.2 cm. 4. Stable sub 6 mm pulmonary nodules. For patients high risk (history of smoking or of other known risk factors), consider optional CT Chest at 12 months. (Reference: Andriy) COMMENTS: The presence of pulmonary emphysema on CT is an independent risk factor for lung cancer. In the absence of a history or active diagnosis of lung cancer, it is recommended that this patient with emphysema be evaluated for enrollment in a low dose CT lung cancer screening program. REFERENCES: Andriy Lino, et al. Guidelines for Management of Incidental Pulmonary Nodules Detected on CT Images: From the Fleischner Society 2017. Radiology. 2017;284(1):228-243.
[2024-06-11 12:37] LABS: Blood Urea Nitrogen 4 mg/dL (8-23); Glomerular Filtration Rate 114.6 mL/min (90-130)
[2024-06-11] MEDS: iohexol 350 mg/mL 500 mL Btl (per mL) IV (12:47)
== END 2024-06-11 11:31 | disposition home or self-care (01) ==
PROVIDERS: PCP Nurse Practitioner Family; Visit Provider Nurse Practitioner Family
DX: R91.8 Other nonspecific abnormal finding of lung field (principal); J47.9 Bronchiectasis, uncomplicated; I77.810 Thoracic aortic ectasia; J43.2 Centrilobular emphysema; J43.8 Other emphysema; J84.10 Pulmonary fibrosis, unspecified; J98.4 Other disorders of lung; I89.8 Other specified noninfective disorders of lymphatic vessels and lymph nodes; I70.0 Atherosclerosis of aorta; M40.294 Other kyphosis, thoracic region; M47.894 Other spondylosis, thoracic region; M85.80 Other specified disorders of bone density and structure, unspecified site
CPT/HCPCS: 71260; 82565; 84520

== ENCOUNTER → 2024-07-13 13:49 | Outpatient (BNVA) | payer OTHER, MEDICAID, SELFPAY | PROVIDERS: PCP Nurse Practitioner Family; Referring Provider Nurse Practitioner Family; Visit Provider Internal Medicine Cardiovascular Disease | DX: I48.91 Unspecified atrial fibrillation (principal); I71.21 Aneurysm of the ascending aorta, without rupture; I11.0 Hypertensive heart disease with heart failure; I50.9 Heart failure, unspecified; J44.9 Chronic obstructive pulmonary disease, unspecified; K70.30 Alcoholic cirrhosis of liver without ascites; F17.210 Nicotine dependence, cigarettes, uncomplicated | CPT/HCPCS: 99204 ==

== ENCOUNTER → 2024-07-13 14:18 | Outpatient (BNVA) | payer OTHER, MEDICAID, SELFPAY | PROVIDERS: PCP Nurse Practitioner Family; Referring Provider Nurse Practitioner Family; Visit Provider Internal Medicine Cardiovascular Disease | DX: R07.9 Chest pain, unspecified (principal); I51.7 Cardiomegaly; R00.1 Bradycardia, unspecified | CPT/HCPCS: 93005 ==

== ENCOUNTER → 2025-02-18 09:22 | Outpatient (BNVA) | payer OTHER, MEDICAID, SELFPAY | PROVIDERS: PCP Nurse Practitioner Family; Visit Provider Nurse Practitioner Family | DX: K74.60 Unspecified cirrhosis of liver (principal); E78.2 Mixed hyperlipidemia; E55.9 Vitamin D deficiency, unspecified; Z12.5 Encounter for screening for malignant neoplasm of prostate; I48.91 Unspecified atrial fibrillation; Z79.899 Other long term (current) drug therapy | CPT/HCPCS: 80053; 80061; 81003; 82306; 82607; 82728; 82746; 83036; 83550; 84443; 85025; G0103 ==